=== PATIENT | male | born 1985 | race African-American/Black ===

== ENCOUNTER 2018-02-03 04:01 | Emergency (ER) | payer MEDICAID, OTHER, SELFPAY ==
[2018-02-03] MEDS ORDERED: Ibuprofen 800 MG TAB ONE (04:13)
--- NOTE | 2018-02-03 08:38 | RAD ---
TWO VIEWS LEFT SHOULDER: Indication: Left shoulder pain. Comparison: None. FINDINGS: There is mild left AC joint hypertrophy. No acute fracture or subluxation is evident. Visualized left lung is clear. IMPRESSION: No acute osseous abnormality. POS: [facility]
== END 2018-02-03 04:46 | disposition home or self-care (01) ==
LOC: ERS 04:01
DX: S43.015A Anterior dislocation of left humerus, initial encounter (principal); F17.200 Nicotine dependence, unspecified, uncomplicated; X50.9XXA Other and unspecified overexertion or strenuous movements or postures, initial encounter
CPT/HCPCS: 23650

== ENCOUNTER 2018-12-25 21:10 | Emergency (ER) | payer SELFPAY ==
[2018-12-25] MEDS ORDERED: Azithromycin 250 MG TAB ONE (22:13)
[2018-12-25] MEDS ORDERED: Lidocaine 1% PF 5 ML VIAL ONE (22:13)
[2018-12-25] MEDS ORDERED: cefTRIAXone\\ROCEPHIN 250 MG VIAL ONE (22:13)
[2018-12-25 22:47] LABS: Bilirubin Negative (Negative); Blood, Urine Negative (Negative); Clarity Clear (Clear); Glucose, Urine (Dipstick) Normal (Negative); Leukocyte Negative Leu/uL (Negative); Nitrite Negative (Negative); Protein, Urine (Dipstick) 20 mg/dL (Neg-Trace)
[2018-12-27 19:48] LABS: Chlam.trachomatis by PCR,Urine Not Detected (NotDetected)
== END 2018-12-25 22:43 | disposition home or self-care (01) ==
LOC: ERS 21:10
DX: Z20.2 Contact with and (suspected) exposure to infections with a predominantly sexual mode of transmission (principal); F17.210 Nicotine dependence, cigarettes, uncomplicated; Z77.22 Contact with and (suspected) exposure to environmental tobacco smoke (acute) (chronic)
CPT/HCPCS: 81003; 87491; 87591; 96372; 99406; J0696; J2001

== ENCOUNTER 2019-02-01 23:14 | Emergency (ER) | payer SELFPAY ==
[2019-02-01] MEDS ORDERED: Lidocaine 1% PF 5 ML VIAL ONE (23:33)
== END 2019-02-02 00:25 | disposition home or self-care (01) ==
LOC: ERS 23:14
DX: Q84.6 Other congenital malformations of nails (principal); L03.011 Cellulitis of right finger; F17.290 Nicotine dependence, other tobacco product, uncomplicated
CPT/HCPCS: 10060; J2001

== ENCOUNTER 2019-10-22 08:57 | Emergency (ER) | payer SELFPAY | END 2019-10-22 09:45 | disposition home or self-care (01) | LOC: ERS 08:57 | DX: L30.9 Dermatitis, unspecified (principal); I10 Essential (primary) hypertension; F17.210 Nicotine dependence, cigarettes, uncomplicated | CPT/HCPCS: 99281 ==

== ENCOUNTER 2020-06-17 03:40 | Emergency (ER) | payer SELFPAY | END 2020-06-17 04:50 | disposition home or self-care (01) | LOC: ERS 03:40 | DX: R06.00 Dyspnea, unspecified (principal); I10 Essential (primary) hypertension; F17.210 Nicotine dependence, cigarettes, uncomplicated | CPT/HCPCS: 71045; 94640; J7620 ==

== ENCOUNTER 2020-08-28 14:30 | Emergency (ER) | payer SELFPAY ==
[2020-08-28] MEDS ORDERED: Albuterol 200 PUFF (6.7GM INHALER) ONE (15:30)
[2020-08-28 21:27] LABS: SARS-CoV-2 PCR by NAA Not Detected (NotDetected)
== END 2020-08-28 16:00 | disposition home or self-care (01) ==
LOC: ERS 14:30
DX: B34.9 Viral infection, unspecified (principal); Z20.822 Contact with and (suspected) exposure to COVID-19; I10 Essential (primary) hypertension; F17.290 Nicotine dependence, other tobacco product, uncomplicated
CPT/HCPCS: 71045; 87635; 94664; U0003; U0005

== ENCOUNTER 2021-08-24 06:21 | Emergency (ER) | payer SELFPAY ==
[2021-08-24] MEDS ORDERED: Morphine 4 MG/ML VIAL ONE ×2 (11:55→13:06)
== END 2021-08-24 10:11 | disposition home or self-care (01) ==
LOC: ERS 06:21
DX: B34.9 Viral infection, unspecified (principal); I10 Essential (primary) hypertension; F17.200 Nicotine dependence, unspecified, uncomplicated
CPT/HCPCS: 99283; J2270

== ENCOUNTER 2023-02-01 14:37 | Inpatient (IN) | payer BC, SELFPAY ==
[~2023-02-01 14:37] MED LIST: Iopamidol-370 76% 500 ML MDV (1 ML CHARGE) ONE
[2023-02-01] MEDS ORDERED: Boostrix 0.5 ML (Tdap) VIAL (>/=7 yrs of age) ONE (14:43)
[2023-02-01] MEDS ORDERED: CEFAZOLIN 2 GM VIAL ONE (14:43)
[2023-02-01] MEDS ORDERED: Ondansetron PF 4 MG/2 ML Vial ONE (14:44)
[2023-02-01] MEDS ORDERED: Morphine 2 MG/ML VIAL ONE ×2 (14:44→15:04)
[2023-02-01] MEDS ORDERED: Sodium Chloride 0.9% 100 ML ONE (14:44)
[2023-02-01 14:56] LABS: Hematocrit 46.1 % (42.0-52.0); Hemoglobin 15.7 g/dL (14.0-18.0); Manual Diff?? YES; Mean Corpuscular HGB CONC 34.1 g/dL (32.0-36.0); Mean Corpuscular Hemoglobin 29.1 pg (27.0-31.0); Mean Corpuscular Volume 85.4 fl (78.0-98.0); Platelet Count 232 10x3/uL (130-400); RBC Distribution Width 13.6 % (11.5-14.5); White Blood Cell (WBC) Count 4.8 10x3/uL (4.8-10.8)
[2023-02-01 15:01] LABS: Delete Auto Diff?? YES
[2023-02-01 15:07] LABS: Alcohol Less than 10.0 mg/dL (Less than 10); Anion Gap 11 mmol/L (10-20); BUN (Urea Nitrogen) 9 mg/dL (8.9-20.6); Calc. Creatinine Clearance 0 mL/min (70-130); Calcium 9.7 mg/dL (7.8-10.44); Carbon Dioxide 28 mmol/L (22-29); Chloride 106 mmol/L (98-107); Estimated GFR 75; Glucose 66 mg/dL (70-105); Potassium 3.9 mmol/L (3.5-5.1); Sodium 141 mmol/L (136-145)
[2023-02-01 15:20] LABS: Band 1 % (5-11); CellaVision Operator ID LAB.MJL; Eosinophils 3 % (0-10); Lymphocytes 47 % (21-51); Monocytes 3 % (0-10); Neutrophil 26 % (42-75); Platelet Adequacy Comment Platelets Normal; RBC Morphology Within Normal Limits; Reactive Lymphocytes 17 % (0-10); Total Cell Count 99
[2023-02-01] MEDS ORDERED: Lidocaine 1% w/Epinephrine 1:100K 20 ML VIAL ONE (15:20)
[2023-02-01] MEDS ORDERED: Sodium Chloride 0.9% 1,000 ML IV SCH (16:15)
[2023-02-01] MEDS ORDERED: Ipratropium/Albuterol 3 ML NEB NEB PRN (16:15)
[2023-02-01] MEDS ORDERED: Ondansetron PF 4 MG/2 ML Vial IVP PRN (16:15)
[2023-02-01] MEDS ORDERED: Acetaminophen 325 MG TAB PO PRN (16:15)
[2023-02-01 16:55] LABS: PTT 28.8 sec (22.9-36.1); Prothrombin Time 13.2 sec (12.0-14.7)
[2023-02-01 16:58] LABS: #Eosinphils 0.1 thou/uL (0.0-0.7); #Monocytes 0.4 thou/uL (0.11-0.59); #Neutrophils 4.9 thou/uL (1.40-6.50); %Basophils 0.4 % (0.0-1.0); %Eosinophils 1.5 % (0.0-10.0); %Lymphocytes 25.5 % (21.0-51.0); %Monocytes 4.9 % (0.0-10.0); %Neutrophils 67.6 % (42.0-75.0); Hematocrit 41.4 % (42.0-52.0); Hemoglobin 14.4 g/dL (14.0-18.0); Mean Corpuscular HGB CONC 34.8 g/dL (32.0-36.0); Mean Corpuscular Hemoglobin 29.3 pg (27.0-31.0); Mean Corpuscular Volume 84.1 fl (78.0-98.0); Mean Platelet Volume 11.1 fL (7.4-10.4); Platelet Count 212 10x3/uL (130-400); RBC Distribution Width 13.4 % (11.5-14.5); Red Blood Cell (RBC) Count 4.92 mill/uL (4.70-6.10); White Blood Cell (WBC) Count 7.2 10x3/uL (4.8-10.8)
[2023-02-01] MEDS ORDERED: traMADol HCl 50 MG TAB ONE (17:16)
[2023-02-01] MEDS: traMADol HCl 50 MG TAB PO PRN (17:19)
[2023-02-01 17:22] VITALS: BMI 25.0
[2023-02-01] MEDS ORDERED: hydrALAZINE 20 MG/ML VIAL ONE (19:44)
[2023-02-01] MEDS ORDERED: Lisinopril 10 MG TAB ONE (19:44)
[2023-02-01] MEDS: Famotidine/PF 20 mg/2ml Vial SLOW IVP SCH (21:26)
[2023-02-01] MEDS: Morphine 2 MG/ML VIAL SLOW IVP PRN (21:26)
[2023-02-02] MEDS: hydrALAZINE 20 MG/ML VIAL SLOW IVP PRN (02:14)
[2023-02-02] MEDS: traMADol HCl 50 MG TAB PO PRN ×3 (02:15→20:28)
[2023-02-02 05:20] LABS: #Eosinphils 0.2 thou/uL (0.0-0.7); #Monocytes 0.7 thou/uL (0.11-0.59); #Neutrophils 4.3 thou/uL (1.40-6.50); %Basophils 0.4 % (0.0-1.0); %Eosinophils 2.1 % (0.0-10.0); %Lymphocytes 35.2 % (21.0-51.0); %Monocytes 8.8 % (0.0-10.0); %Neutrophils 53.4 % (42.0-75.0); Hematocrit 36.6 % (42.0-52.0); Hemoglobin 12.6 g/dL (14.0-18.0); Mean Corpuscular HGB CONC 34.4 g/dL (32.0-36.0); Mean Corpuscular Hemoglobin 29.1 pg (27.0-31.0); Mean Corpuscular Volume 84.5 fl (78.0-98.0); Mean Platelet Volume 11.1 fL (7.4-10.4); Platelet Count 199 10x3/uL (130-400); RBC Distribution Width 13.4 % (11.5-14.5); Red Blood Cell (RBC) Count 4.33 mill/uL (4.70-6.10)
[2023-02-02] MEDS: Morphine 2 MG/ML VIAL SLOW IVP PRN ×2 (06:43→15:00)
[2023-02-02] MEDS: Famotidine/PF 20 mg/2ml Vial SLOW IVP SCH ×2 (08:03→20:28)
[2023-02-02] MEDS: Amlodipine 10 MG TAB PO SCH (08:04)
[2023-02-02] MEDS ORDERED: Morphine 4 MG/ML VIAL SLOW IVP SCH (08:50)
[2023-02-02] MEDS ORDERED: Morphine 4 MG/ML VIAL ONE (08:53)
[2023-02-03] MEDS: traMADol HCl 50 MG TAB PO PRN ×2 (03:31→09:43)
[2023-02-03] MEDS: hydrALAZINE 20 MG/ML VIAL SLOW IVP PRN (03:31)
[2023-02-03] MEDS: Famotidine/PF 20 mg/2ml Vial SLOW IVP SCH (09:43)
[2023-02-03] MEDS: Amlodipine 10 MG TAB PO SCH (09:43)
[2023-02-03 12:52] VITALS: BP 137/82; TEMP 98.4
[2023-02-05] MEDS ORDERED: FLU VACC QS2023-24(6MOS UP)/PF 60 MCG/0.5 ML SYRINGE IM ONE (09:00)
== END 2023-02-03 16:00 | disposition home or self-care (01) | DRG 909 ==
LOC: ERS 14:37 → ERHOLD 16:15 → SURG B 20:39
PROVIDERS: ADMIT Student in an Organized Health Care Education/Training Program; ATTEND Student in an Organized Health Care Education/Training Program
PROC: 0JQH0ZZ Repair Left Lower Arm Subcutaneous Tissue and Fascia, Open Approach (ICD-10-PCS; principal; 2023-02-01)
PROC: 0JCH0ZZ Extirpation of Matter from Left Lower Arm Subcutaneous Tissue and Fascia, Open Approach (ICD-10-PCS; 2023-02-02)
DX: S51.822A Laceration with foreign body of left forearm, initial encounter (principal); W26.8XXA Contact with other sharp object(s), not elsewhere classified, initial encounter; I10 Essential (primary) hypertension; F17.210 Nicotine dependence, cigarettes, uncomplicated
CPT/HCPCS: 12032; 36415; 80048; 80307; 85025; 85610; 85730; 86850; 86900; 86901; 90715; 96374; 96375; 97139; J0360; J2270; J2272; J2405; J3490; J7050; Q9967; S0028